=== PATIENT | female | born 1935 | race Caucasian/White ===

== ENCOUNTER 2017-03-15 21:31 | Emergency (ER) | payer MEDICARE ==
[2017-03-15] MEDS ORDERED: LABETALOL HCL 100MG/20ML VIAL ONE (21:45)
[2017-03-15] MEDS ORDERED: LABETALOL HCL 100MG/20ML VIAL IVP STA (22:00)
--- NOTE | 2017-03-15 22:07 | ED Physician Documentation ---
Neuro Symptoms - HISTORIAN Historian: patient - HPI Stated Complaint: Difficulty speaking Chief Complaint: Neurological Deficits Onset: hours (2030) Timing: sudden onset, still present Last known Well Date: 03/15/17 Last Known Well Time: 20:30 Last known Well Code/Unknown Code: Known Severity: mild Context: denies: insect, tick bite, falling injury, head injury Further Comments: yes (81 year old female patient brought in by her son for evaluation. Son reports about 1 hour ago patient's speech became difficult to understand. "It sounded like she was speaking Finnish". Family reports patient could intermittently speak very clearly, had difficulty answer some simple questions. 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; TIA 09/2009), other (hypothyroidism, gout) Other History: hypertension Surgeries/Procedures: hysterectomy Home Medications: Ambulatory Orders Medication Instructions Recorded Allopurinol [Zyloprim] 100 mg PO QD 03/15/17 Aspirin EC [Ecotrin] 325 mg PO QDAY 03/15/17 Atenolol [Tenormin] 25 mg PO DAILY 03/15/17 Cholecalciferol [Vitamin D-3] 2,000 unit PO DAILY 03/15/17 Cranberry Fruit [Cranberry] 800 mg PO QDAY 03/15/17 Latanoprost [Xalatan] 1 drop OP QDAY 03/15/17 Levothyroxine Sodium [Levoxyl] 88 mcg PO QDAY 03/15/17 Lisinopril 20 mg PO QDAY 03/15/17 [place]-3 Fatty Acids/Fish Oil [Fish 1 each PO QDAY 03/15/17 Oil Concentrate Softgel] Oxybutynin Chloride [Ditropan] 5 mg PO BID 03/15/17 Simvastatin [Zocor] 20 mg PO HS 03/15/17 Timolol Maleate/Pf [Timoptic 0.25% 1 each OP QDAY 03/15/17 Ocudose Drop] amLODIPine BESYLATE [Norvasc] 5 mg PO QDAY 03/15/17 - FAMILY HX Family History: denies: none - SOCIAL HX Smoking History: non-smoker - VITAL SIGNS Vital Signs: Vital Signs Temp Pulse Resp BP Pulse Ox 74 18 205/85 99 03/15/17 23:30 03/15/17 21:35 03/15/17 21:35 03/15/17 23:30 - REVIEWED ASSESSMENTS Nursing Assessment Reviewed: Yes Vitals Reviewed: Yes Progress - Progress Progress: Initial BP 205/85 Accu check 80 2200 NIH stroke score 2 2220 Radiology attempting to reach radiologist for CT reading. 2240 Multiple attempts to reach radiologist by tech for CT reading. [address] and lab results with family. UA pending. No further slurred speech, answering questions appropriately. Family now reports patient was sick on Wednesday with multiple episodes of vomiting. Resolved Wednesday morning. No fever or diarrhea. 2320 Discussed treatment options with family and patient. Recommended neuro consult with stroke center. [address] Murrell, recommended outpatient follow up in clinic. Discussed recommendations with family. Patient drove herself to [employer]. Instructed patient not to drive home alone. ED Results Lab/Radiology - Lab Results Lab Results: Lab Results 03/15/17 03/15/17 03/15/17 22:02 22:02 22:02 WBC 8.00 K/ul K/ul (4.00-12.00) RBC 4.60 M/ul M/ul (3.90-5.20) Hgb 14.3 g/dL g/dL (12.0-16.0) Hct 42.7 % % (34.5-46.5) MCV 92.8 fl fl (80.0-100.0) MCH 31.1 pg pg (28.0-34.0) MCHC 33.5 g/dL g/dL (30.0-36.0) RDW 13.2 % % (11.3-14.3) Plt Count 211 K/mm3 K/mm3 (130-400) Neut % (Auto) 51.2 % % (39.0-79.0) Lymph % (Auto) 34.4 % % (16.0-50.0) Ballard % (Auto) 7.5 % % (0.0-11.0) Eos % (Auto) 4.1 % % (0.0-6.8) Baso % (Auto) 0.5 (0.0-1.5) Neut # (Auto) 4.1 # k/uL # k/uL (1.4-7.7) Lymph # (Auto) 2.7 # k/uL # k/uL (0.6-4.0) Ballard # (Auto) 0.6 # k/uL # k/uL (0.0-0.9) Eos # (Auto) 0.3 # k/uL # k/uL (0.0-0.6) Baso # (Auto) 0.0 # k/uL # k/uL (0.0-0.5) Reactive Lymphs % 2.3 % % (0.0-5.0) Reactive Lymphs # 0.2 # k/uL # k/uL (0.0-0.8) PT 10.8 Seconds Seconds (9.4-11.6) INR 1.03 (0.9-1.2) APTT 25.0 Seconds Seconds (24.5-32.8) Sodium 135 mmol/L L mmol/L (136-145) Potassium 3.3 mmol/L L mmol/L (3.5-5.1) Chloride 97 mmol/L L mmol/L (98-107) Carbon Dioxide 28 mmol/L mmol/L (22-30) BUN 13 mg/dL mg/dL (7-17) Creatinine 0.70 mg/dL mg/dL (0.52-1.04) Estimated Creat Clear 63 Est GFR ( Amer) > 60 (60 - ) Est GFR (Non-Af Amer) > 60 (60 - ) Glucose 88 mg/dL mg/dL (74-106) Calcium 9.6 mg/dL mg/dL (8.4-10.2) Total Bilirubin 0.4 mg/dL mg/dL (0.2-1.3) AST 31 U/L U/L (15-46) ALT 37 U/L U/L (13-69) Alkaline Phosphatase 84 U/L U/L (38-126) Total Protein 7.2 g/dL g/dL (6.3-8.2) Albumin 3.8 g/dL g/dL (3.5-5.0) - Radiology Radiology Impressions: Head CT without contrast Clinical history: CONFUSION Technique: CT examination of brain was performed in contiguous axial slices without the use of contrast. Findings: The 4th ventricle lies in a normal midline position. The ventricles and sulci are prominent secondary to atrophy. Chronic ischemic changes are present in the periventricular regions. There is no hypodense are hyperdense mass or intracranial hemorrhage. The visualized paranasal sinuses and mastoid air cells are clear. Impression: 1 atrophy and chronic small vessel ischemic changes. 2. No acute intracranial changes. Electronically signed on Mar 15, 2017 10:53:36 PM [employer]OOK by: Austen Otoole - Orders Orders: ED Orders Category Date Time Status Continuous EKG monitoring Q30M Care 03/15/17 21:39 Active Continuous Pulse Oximetry Q30M Care 03/15/17 21:[address] IV Lock 1T Care 03/15/17 21:[address] BRAIN W/O CONTRAST Stat Exams 03/15/17 Taken CBC/PLATELET/DIFF Stat Lab 03/15/17 22:02 Completed CMP Stat Lab 03/15/17 22:02 Completed PT-INR Stat Lab 03/15/17 22:02 Completed PTT Stat Lab 03/15/17 22:02 Completed UA W/MICRO IF INDICATED Stat Lab 03/15/17 21:39 Ordered Chem Sticks Med 03/15/17 22:00 Ordered 1 each MC PRN Labetalol HCl [Trandate] Med 03/15/17 21:45 Discontinued 100 mg .ROUTE .STK-MED ONE Labetalol HCl [Trandate] Med 03/15/17 22:00 Discontinued 5 mg IVP NOW STA Neuro Symptoms Physical Exam - Physical Exam General Appearance: mild distress HEENT: no apparent trauma, EOM's intact, PERRL, ENT inspection nml, pharynx nml , airway intact, oral exam nml Neuro/Psych: alert, no evidence of acute CVA, mood/affect nml, other (Oriented to person and place. Cannot recall date, can not recall president) Cranial Nerves: nml as tested Cerebellar: nml as tested Pheripheral Exam: motor nml, sensation nml Respiratory: no resp distress, chest non-tender, breath sounds normal CVS: reg rate & rhythm, heart sounds normal, equal pulses, no murmur, no gallop , PMI nml, no JVD, no friction rub, 24 Abdomen: non-tender, no distention, no organomegaly Skin: color nml, no rash, nml palp., dry Extremities: non-tender, normal range of motion, no evidence of injury, no edema , J, [employer] Discharge Clincal Impression: TIA (transient ischemic attack) Qualifiers: Transient cerebral ischemia type: unspecified Qualified Code(s): G45.9 - Transient cerebral ischemic attack, unspecified Referrals: Primary Doctor,No [Primary Care Provider] - 2 Days Additional Instructions: Continue all current medications Return to ER if your symptoms return or you have difficulty with speech, arm drift or weakness, facial droop Follow up with your doctor on arrival home. Condition: Stable Disposition: 01 HOME, SELF-CARE Decision to Admit: NO Decision Time: 23:44
[2017-03-15 22:08] LABS: BASOPHILS % 0.5 (0.0-1.5); EOSINOPHILS % 4.1 % (0.0-6.8); MEAN CORPUSCULAR HEMOGLOBIN 31.1 pg (28.0-34.0); MEAN CORPUSCULAR VOLUME 92.8 fl (80.0-100.0); MONOCYTES % 7.5 % (0.0-11.0); NEUTROPHILS # 4.1 # k/uL (1.4-7.7)
[2017-03-15 22:22] LABS: eGFR (African) > 60; eGFR (Non-African) > 60
[2017-03-16 00:05] VITALS: BP 149/64
[2017-03-16 06:00] LABS: APPEARANCE,URINE CLEAR (CLEAR); COLOR,URINE YELLOW (YELLOW); OCCULT BLOOD,URINE TRACE-LYSED (NEGATIVE)
[2017-03-16 06:01] LABS: PH URINE 6.5 (5.0 - 8.0); UROBILINOGEN URINE 0.2 Eu (0.2-1.0)
--- NOTE | 2017-03-16 07:00 | Diagnostic Imaging Report ---
AMELIA DAVIS (FRED) - LIZBETH [facility] [address] [facility] [address] [address] Report Submission Date: Mar 15, 2017 10:53:36 PM ORDER ENTRY REPRESENTATIVE Patient Study Name: CLAUDIA COOK Date: Mar 15, 2017 9:47:28 PM ORDER ENTRY REPRESENTATIVE Modality Type: CT\SR Gender: F Description: CT BRAIN W/O CONTRAST : 35 Institution: [facility] Physician: AMELIA DAVIS) Lasha NIEVES Head CT without contrast Clinical history: CONFUSION Technique: CT examination of brain was performed in contiguous axial slices without the use of contrast. Findings: The 4th ventricle lies in a normal midline position. The ventricles and sulci are prominent secondary to atrophy. Chronic ischemic changes are present in the periventricular regions. There is no hypodense are hyperdense mass or intracranial hemorrhage. The visualized paranasal sinuses and mastoid air cells are clear. Impression: 1 atrophy and chronic small vessel ischemic changes. 2. No acute intracranial changes. Electronically signed on Mar 15, 2017 10:53:36 PM ORDER ENTRY REPRESENTATIVE by: Austen REYNOSO
== END 2017-03-15 23:55 | disposition home or self-care (01) ==
LOC: ED 21:31
DX: G45.9 Transient cerebral ischemic attack, unspecified (principal)
CPT/HCPCS: 70450; 80053; 85025; 85610; 85730; J3490; 51701; 81002; 96374; 99283; S1016